=== PATIENT | female | born 2000 | race Caucasian/White ===

== ENCOUNTER 2020-10-16 19:39 | Emergency (ER) | payer OTHER ==
[~2020-10-16 19:39] MED LIST: BACLOFEN 10MG T10 MG PO; NAPROXEN500 MG PO
[2020-10-16] MEDS ORDERED: VENTOLIN HFA18 GM INH (21:05)
[2020-10-16] MEDS ORDERED: ZOFRAN4 M1 PO (21:05)
[2020-10-16] MEDS ORDERED: NAPROXEN500 MG PO (21:05)
[2020-10-16] MEDS ORDERED: TESSALON PERLE100 M1 PO (21:05)
[2020-10-16] MEDS ORDERED: MEDROL 4MG DOSEP4 MG PO (21:05)
== END 2020-10-16 21:15 | disposition home or self-care (01) ==
LOC: FER 19:39
DX: U07.1 COVID-19 (principal)
CPT/HCPCS: 99284; U0002